=== PATIENT | female | born 1955 | race Caucasian/White ===

== ENCOUNTER 2018-05-31 16:47 | Emergency (ER) | payer SELFPAY ==
[~2018-05-31] VITALS: Ht 160 cm; Wt 102.1 kg
[2018-05-31 16:52] VITALS: BP 133/76
--- NOTE | 2018-05-31 16:58 | NUR ---
PT AMBULATED TO ER BED 9.
--- NOTE | 2018-05-31 17:03 | NUR ---
63/F PRESENT TO ER C/O MECHANICAL FALL x YESTERDAY @ 1200. PT STATES SHE FELL ON PAVEMENT AND LANDED ON HER RT KNEE AND RT SHOULDER. PT DENIES KO/LOC. REDNESS NOTED TO RT SHOULDER AND RT KNEE. HX: HTN MEDS: NONE
--- NOTE | 2018-05-31 17:55 | NUR ---
NO ACUTE CHNAGE IN CONDITON, AWAIITNG RESULTS.
[2018-05-31] MEDS ORDERED: KETOROLAC 30 MG/ML VIAL IM ONE (18:10)
[2018-05-31 18:55] VITALS: BP 129/68
--- NOTE | 2018-05-31 18:56 | NUR ---
Patient discharged with v/s stable. Written and verbal after care instructions given and explained. Patient alert, oriented and verbalized understanding of instructions. Ambulatory with steady gait. All questions addressed prior to discharge. ID band removed. Patient advised to follow up with PMD. Rx of TYLENOL AND IBUPROFEN given. Patient educated on indication of medication including possible reaction and side effects. Opportunity to ask questions provided and answered.
== END 2018-05-31 18:56 | disposition home or self-care (01) ==
LOC: MED 16:47
DX: S43.401A Unspecified sprain of right shoulder joint, initial encounter (principal); S40.011A Contusion of right shoulder, initial encounter; S80.01XA Contusion of right knee, initial encounter; W01.0XXA Fall on same level from slipping, tripping and stumbling without subsequent striking against object, initial encounter; Y93.89 Activity, other specified; Y92.480 Sidewalk as the place of occurrence of the external cause; Y99.8 Other external cause status
CPT/HCPCS: 73030; 73060; 73562; 96372; 99284; J1885